=== PATIENT | female | born 1945 | race Caucasian/White ===

== ENCOUNTER 2019-01-23 14:20 | Emergency (ER) | payer MEDICARE, MEDICAID ==
[~2019-01-23] VITALS: Ht 157.5 cm; Wt 108.9 kg
[~2019-01-23 14:20] MED LIST: AMOXICILLIN 50500 M1; ATENOLOL 25 MG25 M1; B12; DILAUDID 2 MG TA2 MG PO; GLUCOSAMINE1000 MG; IMITREX 50 MG T50 M1; L-LYSINE500 M1; OMEGA; PANTOPRAZOLE SO40 M1; PRAVACHOL40 MG; TOPAMAX 25 MG T25 M1; TRIAMTERENE-HC1 EAC1; VITAMIN C 250250 MG; VITAMIN D
[2019-01-23 14:35] VITALS: BP 160/70
[2019-01-23] MEDS ORDERED: NORCO 5-325 TA1 EACH PO (14:37)
[2019-01-23] MEDS ORDERED: BACTRIM DS TAB1 EACH PO (14:51)
[2019-01-23] MEDS ORDERED: NORCO 5-325 TA1 EAC1 PO (14:51)
[2019-01-23] MEDS ORDERED: ALBUTEROL2.5 MG/0.5 INH (15:04)
== END 2019-01-23 15:00 | disposition home or self-care (01) ==
LOC: M.ERS 14:20
DX: L02.214 Cutaneous abscess of groin (principal); L03.314 Cellulitis of groin; G47.30 Sleep apnea, unspecified; Z91.041 Radiographic dye allergy status; Z88.5 Allergy status to narcotic agent; Z88.6 Allergy status to analgesic agent; Z88.8 Allergy status to other drugs, medicaments and biological substances; Z90.710 Acquired absence of both cervix and uterus; Z96.652 Presence of left artificial knee joint

== ENCOUNTER → 2019-03-21 | Outpatient (CLI) | payer MEDICARE, MEDICAID ==
[~2019-03-21] MED LIST changes: +ALBUTEROL2.5 MG/0.5 INH; -ATENOLOL 25 MG25 M1; +ATENOLOL 25 MG25 M1 PO; -B12; +BACTRIM DS TAB1 EACH PO; +CIPRO500 MG PO; +FLAGYL500 M1 PO; -GLUCOSAMINE1000 MG; +GLUCOSAMINE1000 MG PO; -IMITREX 50 MG T50 M1; +IMITREX 50 MG T50 MG PO; -L-LYSINE500 M1; +L-LYSINE500 M1 PO; +MOBIC7.5 MG PO; +NORCO 5-325 TA1 EAC1 PO; +NORCO 5-325 TA1 EACH PO; -PANTOPRAZOLE SO40 M1; +PANTOPRAZOLE SO40 M1 PO; -PRAVACHOL40 MG; +PRAVACHOL40 MG PO; -TOPAMAX 25 MG T25 M1; +TOPAMAX 25 MG T25 M1 PO; -TRIAMTERENE-HC1 EAC1; +TRIAMTERENE-HC1 EAC1 PO; +VITAMIN B-12500 MC5 PO; -VITAMIN C 250250 MG; +VITAMIN C250 MG PO; -VITAMIN D; +VITAMIN D1000 UNI1 PO
== END ==
LOC: M.LAB 07:05
DX: E87.6 Hypokalemia (principal)

== ENCOUNTER 2020-02-27 11:02 | Inpatient (IN) | payer MEDICARE, OTHER, MEDICAID ==
[~2020-02-27] VITALS: Ht 157.5 cm; Wt 104.8 kg
[2020-02-27 11:13] VITALS: BP 122/59
[2020-02-27 11:53] LABS: ABSOLUTE EOSINOPHILS 0.1 thou/uL (0.0-0.7); ABSOLUTE LYMPHOCYTES 1.4 thou/uL (0.8-5.3); ABSOLUTE MONOCYTES 0.7 thou/uL (0.0-1.2); ABSOLUTE NEUTROPHILS 4.6 thou/uL (1.6-8.1); BASOPHILS 0.3 %; EOSINOPHILS 1.2 %; HEMATOCRIT 38.9 % (37.0-47.0); HEMOGLOBIN 13.4 gm/dL (12.0-15.0); LYMPHOCYTES 20.7 %; MCHC 34.4 g/dL (28.0-37.0); MCV 87.3 fL (80.0-100.0); MONOCYTES 10.3 %; MPV 8.8 fl. (7.2-11.1); NUCLEATED RBCS 0 /100WBC; PLATELET COUNT* 176 thou/uL (150-400); POLYS 67.5 %; RBC 4.46 mil/uL (4.20-5.00); RDW-CV 13.9 % (10.5-14.5); WBC 6.8 thou/uL (4.0-11.0)
[2020-02-27 12:01] LABS: CREATININE 2.2 mg/dL (0.6-1.3); POTASSIUM 3.8 mmol/L (3.5-5.1)
[2020-02-27 12:06] LABS: ALBUMIN 3.3 g/dL (3.4-5.0); TOTAL BILIRUBIN 0.8 mg/dL (<0.1-1.0); TOTAL PROTEIN 7.1 g/dL (6.4-8.2)
[2020-02-27 12:07] LABS: INFLUENZA A ANTIGEN Negative (Negative); INFLUENZA B ANTIGEN Negative (Negative)
[2020-02-27 12:13] LABS: APTT 26.2 Seconds (25.0-31.3); INR 1.1; PROTIME 11.2 Seconds (9.20-11.50)
[2020-02-27 14:08] VITALS: BP 118/61
[2020-02-27 14:54] VITALS: BP 143/87
--- NOTE | 2020-02-27 15:39 | EKG ---
[place] [address] ELECTROCARDIOGRAM REPORT Name: ELENA CALDERON Room: [address] ADM IN M.R.#: [id number] Admission: 02/27/20 Attend Phys: Panda madison Sa Discharge: Date of : 47 Date of Service: 02/27/20 1136 Report #: [id number] THIS REPORT FOR: //name// [facility] ED Test Date: 2020-02-27 Test Time: 11:36:13 Pat Name: ELENA CALDERON Department: Room: [facility] Gender: F Director Weights And Measures: CARRILLO : 1945 Requested By: Fabricio Baltazar Order Number: [id number] MD: Rafa Andrea Measurements Intervals [place] Rate: 63 P: 47 MT: 151 QRS: 36 QRSD: 96 T: 32 QT: 438 QTc: 449 Interpretive Statements Sinus rhythm Abnormal R-wave progression, early transition No previous ECG available for comparison Electronically Signed On 02-27-2020 15:37:52 CDT by Rafa Andrea [email or web address] <ELECTRONICALLY SIGNED> By: Rafa Andrea MD, [facility] 02/27/20 1537 1136 1136 Rafa Andrea MD, [facility] /EPI
[2020-02-27] MEDS ORDERED: OMEPRAZOLE20 M1 PO (17:11)
[2020-02-27] MEDS ORDERED: PRAVACHOL40 MG PO (17:12)
[2020-02-27] MEDS ORDERED: ZANAFLEX4 M1 PO (17:13)
[2020-02-27] MEDS ORDERED: DULOXETINE HCL30 MG PO (17:14)
[2020-02-27] MEDS ORDERED: LEVO-T25 MCG PO (17:15)
[2020-02-27] MEDS ORDERED: MECLIZINE HCL25 M1 PO (17:16)
--- NOTE | 2020-02-27 17:32 | NUR ---
PT REMAINED ALERT AND ORIENTED. PT RESTING IN BED. PT EDUCATED ON NEEDING STOOL SAMPLE AND USING CALL LIGHT WHEN NEEDING TO GO TO THE BATHROOM. MEDS GIVEN ORDERED. FALL RISK PRECAUTIONS IN PLACE. HOURLY ROUNDING COMPLETED. WILL CONTINUE TO MONITOR.
[2020-02-27 20:15] VITALS: BP 104/51
[2020-02-28] VITALS: BP 95/39
--- NOTE | 2020-02-28 03:47 | NUR ---
ASSUMED CARE OF PT AT 1900. PT IS ALERT AND ORIENTED. VSS. PERRLA. PT IS ON 2 LITERS O2. PT IS MED SURG. PT IS SLEEPING QUIETLY IN BED. RESPIRATIONS ARE EVEN AND NONLABORED. WILL CONTINUE TO MONITOR PT.
[2020-02-28 04:27] VITALS: BP 134/66
[2020-02-28 05:32] LABS: ABSOLUTE EOSINOPHILS 0.2 thou/uL (0.0-0.7); ABSOLUTE LYMPHOCYTES 1.8 thou/uL (0.8-5.3); ABSOLUTE MONOCYTES 0.7 thou/uL (0.0-1.2); ABSOLUTE NEUTROPHILS 3.9 thou/uL (1.6-8.1); BASOPHILS 0.2 %; EOSINOPHILS 3.3 %; HEMATOCRIT 34.2 % (37.0-47.0); HEMOGLOBIN 11.8 gm/dL (12.0-15.0); LYMPHOCYTES 27.2 %; MCH 30.2 pg (26.0-34.0); MCHC 34.7 g/dL (28.0-37.0); MCV 87.2 fL (80.0-100.0); MONOCYTES 10.9 %; MPV 8.6 fl. (7.2-11.1); NUCLEATED RBCS 0 /100WBC; PLATELET COUNT* 167 thou/uL (150-400); POLYS 58.4 %; RBC 3.92 mil/uL (4.20-5.00); RDW-CV 14.1 % (10.5-14.5); WBC 6.7 thou/uL (4.0-11.0)
[2020-02-28 06:01] LABS: ALBUMIN 2.8 g/dL (3.4-5.0); CALCIUM 7.7 mg/dL (8.5-10.1); CREATININE 2.3 mg/dL (0.6-1.3); MAGNESIUM 1.8 mg/dL (1.8-2.4); POTASSIUM 4.4 mmol/L (3.5-5.1); TOTAL BILIRUBIN 0.5 mg/dL (<0.1-1.0); TOTAL PROTEIN 6.3 g/dL (6.4-8.2)
[2020-02-28 09:16] VITALS: BP 145/78
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
== END 2020-02-27 23:59 | disposition home or self-care (01) | DRG 191 ==
LOC: M.ERS 11:02 → M.ORTHSURG 13:01 → M.TBA-ER 13:01 → M.ORTHSURG 13:36
PROVIDERS: Emergency Medicine; ADMIT Family Medicine
DX: J44.1 Chronic obstructive pulmonary disease with (acute) exacerbation (principal); N17.9 Acute kidney failure, unspecified; Z68.41 Body mass index [BMI] 40.0-44.9, adult; J20.9 Acute bronchitis, unspecified; J44.0 Chronic obstructive pulmonary disease with (acute) lower respiratory infection; E86.0 Dehydration; E78.5 Hyperlipidemia, unspecified; E03.9 Hypothyroidism, unspecified; E66.01 Morbid (severe) obesity due to excess calories; G47.33 Obstructive sleep apnea (adult) (pediatric); R19.7 Diarrhea, unspecified; K21.9 Gastro-esophageal reflux disease without esophagitis; Z96.652 Presence of left artificial knee joint; E11.9 Type 2 diabetes mellitus without complications; Z20.828 Contact with and (suspected) exposure to other viral communicable diseases; Z90.710 Acquired absence of both cervix and uterus; Z95.5 Presence of coronary angioplasty implant and graft; Z79.899 Other long term (current) drug therapy; Z88.5 Allergy status to narcotic agent; Z88.8 Allergy status to other drugs, medicaments and biological substances; Z87.891 Personal history of nicotine dependence

== ENCOUNTER 2020-02-28 | Inpatient (IN) | payer OTHER, MEDICAID ==
[~2020-02-28] MED LIST changes: +DULOXETINE HCL30 MG PO; +LEVO-T25 MCG PO; +MECLIZINE HCL25 M1 PO; +OMEPRAZOLE20 M1 PO; +ZANAFLEX4 M1 PO
--- NOTE | 2020-02-28 11:51 | NUR ---
PT WAS DISCHARGED BY ADMITTING DUE TO INSURANCE CHANGES, PLEASE REFER TO ACCOUNT [id number] FOR INFORMATION.
[2020-02-28 16:00] VITALS: BP 124/70
--- NOTE | 2020-02-28 16:19 | NUR ---
PT REMAINED ALERT AND ORIENTED. PT RESTING IN BED. TITRATING O2 DOWN. PT IV INFILTRATED, ATTEMPTING TO PLACE NEW IV. FALL RISK PRECAUTIONS IN PLACE. HOURLY ROUNDING COMPLETED. WILL CONTINUE TO MONITOR.
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
--- NOTE | 2020-02-29 03:38 | NUR ---
ASSUMED CARE OF PT AT 1900. PT IS ALERT AND ORIENTED. VSS. PERRLA. NO COMPLAINTS OF PAIN. PT IS ON 2 LITERS O2. PT IS IN SINUS RYTHM ON THE TELEMETRY. PT IS RESTING COMFORTALY IN BED. RESPIRATIONS ARE EVEN AND NONLABORED. WILL CONTINUE TO MONITOR PT.
--- NOTE | 2020-02-29 07:05 | NUR ---
CHANGE OF SHIFT BEDSIDE REPORT GIVEN PATIENT SEEN AT BEDSIDE, IN BED ASLEEP ASSUMED PATIENT CARE
[2020-02-29 08:00] VITALS: BP 129/64
[2020-02-29 17:05] VITALS: BP 131/67
[2020-03-01] VITALS: BP 149/64
[2020-03-01 04:59] LABS: HEMATOCRIT 31.6 % (37.0-47.0); MCH 30.5 pg (26.0-34.0); MCHC 34.9 g/dL (28.0-37.0); MCV 87.4 fL (80.0-100.0); MPV 8.5 fl. (7.2-11.1); RBC 3.61 mil/uL (4.20-5.00); RDW-CV 13.7 % (10.5-14.5); WBC 5.7 thou/uL (4.0-11.0)
[2020-03-01 05:09] LABS: ALBUMIN 2.5 g/dL (3.4-5.0); CALCIUM 7.9 mg/dL (8.5-10.1); CREATININE 1.4 mg/dL (0.6-1.3); MAGNESIUM 1.4 mg/dL (1.8-2.4); PHOSPHORUS* 3.4 mg/dL (2.5-4.9); POTASSIUM 4.1 mmol/L (3.5-5.1)
--- NOTE | 2020-03-01 05:15 | NUR ---
PATIENT HAS REMAINED ALERT AND ORIENTED X 4 THROUGHOUT THE SHIFT AND RESTING QUIETLY ON HOURLY ROUNDS. UP INDEPENDENTLY IN THE ROOM TO BSC. VOIDING ADEQUATELY. O2 ON AT 1L/MIN WITH STABLE SATS. SOME SHORTNESS OF AIR WITH ACTIVITY AND TALKING. VITAL SIGNS STABLE. CXR RESULTS THIS AM PENDING. PATIENT VERBALIZING CONCERN SHE HAS NOT HAD HER HOME MEDICATIONS INCLUDING DIURETIC. NOTED 1+ PITTING EDEMA BLE'S. WILL SEND MESSAGE TO PHYSICIAN. CONTINUE TO MONITOR. REMAINS ON CO-VID PENDING ISOLATION. CONTINUE TO MONITOR.
[2020-03-01 08:30] VITALS: BP 140/59
[2020-03-01] MEDS ORDERED: LOVASTATIN 20 M20 MG PO (09:29)
[2020-03-01 14:00] VITALS: BP 129/73; BP 148/58
[2020-03-01 20:00] VITALS: BP 143/66
[2020-03-02] VITALS: BP 146/73
--- NOTE | 2020-03-02 06:36 | NUR ---
ASSUMED CARE OF PT AFTER REPORT AT 1930. PT A&OX4. VSS. PHYSICAL ASSESSMENT COMPLETED AND CHARTED. PT ON RA. PT ON MEDSURG STATUS. PT DENIES ANY PAIN. PT REQUEST TO RESUME HOME MED-ATENOLOL- PROVIDER MADE AWARE WITH NEW ORDER. CALL LIGHT WITHIN REACH. PT REFUSED VENDING ROUTE DRIVER LAB- CLAIMED TRY AGAIN LATER. WILL ENDORSED TO ONCOMING NURSE. CALL LIGHT WITHIN REACH.
[2020-03-02 08:40] VITALS: BP 135/63
[2020-03-02 08:43] LABS: URINE BILIRUBIN NEGATIVE (Negative); URINE BLOOD NEGATIVE (Negative); URINE CLARITY CLEAR; URINE COLOR YELLOW; URINE GLUCOSE-RANDOM NEGATIVE (Negative); URINE KETONES NEGATIVE (Negative); URINE LEUKOCYTES-REFLEX NEGATIVE (Negative); URINE NITRITE-REFLEX NEGATIVE (Negative); URINE PROTEIN NEGATIVE (Negative); URINE SPECIFIC GRAVITY 1.025 (1.005-1.030); URINE UROBILINOGEN 0.2 E.U./dl (0.2-1.0)
[2020-03-02 12:00] VITALS: BP 154/75
[2020-03-02 15:34] LABS: HEMATOCRIT 33.9 % (37.0-47.0); HEMOGLOBIN 11.6 gm/dL (12.0-15.0); MCH 30.3 pg (26.0-34.0); MCHC 34.4 g/dL (28.0-37.0); MPV 8.3 fl. (7.2-11.1); RBC 3.85 mil/uL (4.20-5.00); RDW-CV 13.8 % (10.5-14.5); WBC 7.3 thou/uL (4.0-11.0)
[2020-03-02 15:43] LABS: ALBUMIN 2.8 g/dL (3.4-5.0); CALCIUM 8.6 mg/dL (8.5-10.1); CREATININE 1.3 mg/dL (0.6-1.3); MAGNESIUM 1.3 mg/dL (1.8-2.4); PHOSPHORUS* 2.3 mg/dL (2.5-4.9); POTASSIUM 4.2 mmol/L (3.5-5.1)
[2020-03-02 16:00] VITALS: BP 144/58
--- NOTE | 2020-03-02 16:49 | NUR ---
ASSUMED CARE OF PT AROUND 0730 THIS AM. REFER TO ASSESSMENT. PT POSITIVE COVID. MAINTAINING OXYGEN SATS >92% ON RA. MAG BEING REPLACED PER PROTOCOL. ID PHYSICIAN ASSESSING FOR MEDICATION AND POSSIBLE DC AT THIS TIME. HOSPITALISTS NOTIFIED. NO OTHER CONCERNS AT THIS TIME. CLWR. WCTM.
--- NOTE | 2020-03-02 18:37 | NUR ---
DISCUSSED DISCHARGE WITH PATIENT THIS EVENING. PT STATES SHE WOULD BE BETTER OFF TO DC HOME TOMORROW D/T SHE HAS BEEN STAYING WITH HER DAUGHTER. HER DAUGHTER WILL PACK HER BELONGINGS SO THAT PT CAN GO HOME TOMORROW AND BE ON TWO WEEK QUARANTINE. PHYSICIAN NOTIFIED. NO OTHER CONCERNS AT THIS TIME. CLWR. WCTM.
[2020-03-02 20:10] VITALS: BP 135/53
[2020-03-03] VITALS: BP 145/56
[2020-03-03 04:00] VITALS: BP 140/48
--- NOTE | 2020-03-03 06:56 | NUR ---
PT CARE ASSUMED AT 1930. SAT MAINTAINED IN RA. ALERT AND ORIENTED X4. CALL LIGHT WITHIN REACH
[2020-03-03 08:00] VITALS: BP 131/54
[2020-03-03] MEDS ORDERED: VITAMIN C1000 MG PO (10:46)
[2020-03-03] MEDS ORDERED: MUCINEX600 MG PO (10:46)
[2020-03-03] MEDS ORDERED: PROBIOTIC1 EAC1 PO (10:46)
[2020-03-03] MEDS ORDERED: AZITHROMYCIN 2250 MG PO (10:46)
[2020-03-03] MEDS ORDERED: PLAQUENIL200 MG PO ×2 (10:48→16:23)
[2020-03-03] MEDS ORDERED: ZINC SULFATE220 MG PO (10:48)
--- NOTE | 2020-03-03 11:04 | NUR ---
ASSUMED CARE OF PATIENT THIS AM AT 0730. PATIENT IS ALERT ORIENTED X 4. SHE SAYS THAT SHE IS NOT FEELING WELL HAS A HEADACHE AND IS NAUSEATED. NO EMESIS NOTED. DR NOTIFIED AND PATIENT MEDICATED PO FOR NAUSEA AND FOR C/O PAIN. TELE SHOWS SR WITH PACS. DR IN TO ROUND AND PLANS DISCHARGE TODAY. WAITING FOR ID DOCTOR TO SEE PATIENT. PATIENT IS PERFORMING IS Q HR.SATS ARE 91 TO 92% ON ROOM AIR.
[2020-03-03 12:00] VITALS: BP 142/61
[2020-03-03 16:29] VITALS: BP 142/61
== END 2020-03-03 18:30 | disposition home or self-care (01) | DRG 177 ==
LOC: M.ORTHSURG
PROVIDERS: Specialist; ADMIT Family Medicine
DX: U07.1 COVID-19 (principal); N17.0 Acute kidney failure with tubular necrosis; J12.89 Other viral pneumonia; J44.0 Chronic obstructive pulmonary disease with (acute) lower respiratory infection; J44.1 Chronic obstructive pulmonary disease with (acute) exacerbation; E86.0 Dehydration; E78.5 Hyperlipidemia, unspecified; E03.9 Hypothyroidism, unspecified; E66.01 Morbid (severe) obesity due to excess calories; G47.33 Obstructive sleep apnea (adult) (pediatric); K21.9 Gastro-esophageal reflux disease without esophagitis; E11.9 Type 2 diabetes mellitus without complications; J22 Unspecified acute lower respiratory infection; K52.9 Noninfective gastroenteritis and colitis, unspecified; Z79.1 Long term (current) use of non-steroidal anti-inflammatories (NSAID); Z79.899 Other long term (current) drug therapy